=== PATIENT | female | born 1945 | race Caucasian/White ===

== ENCOUNTER 2016-07-21 10:27 | Emergency (ER) | payer MEDICARE, MEDICAID ==
[~2016-07-21] VITALS: Ht 152.4 cm; Wt 63.5 kg
[~2016-07-21 10:27] MED LIST: CARV3.122 PO; CHOL10005 PO; DOCU-270 PO; DULO60CA45 PO; ESOM40CA PO; EZET10TA PO; FAMO40TA71 PO; FLUV20CA PO; HYDR-507 PO; LORA1TAB PO; OMEG1CAP55 PO; OXYB10TA4 PO; OXYC-128 PO; SPIR25TA4 PO; TRAM-351 PO; TRAZ-144 PO; VENL37.515 PO
--- NOTE | 2016-07-21 10:40 | NUR ---
dr herrera at the bedside for eval and exam.
[2016-07-21] MEDS ORDERED: HYDROCODONE/APAP 10-325 MG TABLET PO ONE (10:45)
--- NOTE | 2016-07-21 10:45 | NUR ---
pt left er for ct.
[2016-07-21] MEDS ORDERED: HYDROCODONE/APAP 10-325 MG TABLET ONE (11:13)
[2016-07-21 11:20] VITALS: BP 150/70
--- NOTE | 2016-07-21 11:20 | NUR ---
Patient discharged to home in stable conditon. Written and verbal after care instructions given. Patient verbalizes understanding of instructions.
== END 2016-07-21 11:21 | disposition home or self-care (01) ==
LOC: ER 10:34
DX: S06.0X0A Concussion without loss of consciousness, initial encounter (principal); I10 Essential (primary) hypertension; K21.9 Gastro-esophageal reflux disease without esophagitis; R51 Headache; E78.5 Hyperlipidemia, unspecified; F32.9 Major depressive disorder, single episode, unspecified; F41.9 Anxiety disorder, unspecified; Y92.89 Other specified places as the place of occurrence of the external cause; W22.8XXA Striking against or struck by other objects, initial encounter; Y93.89 Activity, other specified; Y99.8 Other external cause status; J44.9 Chronic obstructive pulmonary disease, unspecified
CPT/HCPCS: 70450; A4663